=== PATIENT | male | born 1970 | race Caucasian/White ===

== ENCOUNTER 2017-09-27 13:51 | Emergency (ER) | payer OTHER, SELFPAY ==
--- NOTE | 2017-09-27 13:52 | ED.CHESTPAIN ---
HPI - Chest Pain <DIANA Ward - Last Filed: 09/27/17 22:42> General Chief Complaint: Chest Pain Stated Complaint: CHEST PAIN Time Seen by Provider: 09/27/17 13:52 History of Present Illness HPI narrative: 47-year-old male here for complaint of having a muscle spasm and some discomfort to his left lateral chest wall sub axillary area started earlier today. He denies any trauma to the area. He reports that he has had the spasm/discomfort several times the day the lasted approximately 5 sec each and then went away. Pain is reproducible with palpation to the area and movement of the left arm. He states that [place] out [place] the [place] the last [place] days and has been pretty physical over this week. He denies any shortness of breath. No chest pain at this time. No nausea vomiting no diaphoresis. Review of Systems <DIANA Ward - Last Filed: 09/27/17 22:42> Constitutional Denies chills, Denies fever(s), Denies lethargy and Denies weakness Eyes Denies change in vision, Denies eye discharge, Denies irritation and Denies loss of vision ENT Ears, Nose, Mouth, and Throat: Denies change in voice, Denies neck pain and Denies sore throat Cardiovascular Denies chest pain, Denies irregular heart rhythm, Denies lightheadedness, Denies palpitations, Denies dyspnea, Denies dyspnea on exertion and Denies orthopnea Respiratory Denies cough, Denies dyspnea, Denies dyspnea on exertion and Denies wheezing Genitourinary Denies hematuria, Denies flank pain, Denies urinary incontinence and Denies urinary urgency Musculoskeletal Denies neck pain Comments: Left ribcage discomfort/muscle spasm Integumentary/Breasts Denies pruritus, Denies erythema, Denies rash and Denies wounds Neurologic Denies loss of vision and Denies weakness Endocrine Denies palpitations Hematologic/Lymphatic Denies easy bruising Allergic/Immunologic Denies wheezing Exam <DIANA Ward - Last Filed: 09/27/17 22:42> Initial Vital Signs Initial Vital Signs: Vital Signs Temperature 98.3 F 09/27/17 14:01 Pulse Rate 65 09/27/17 14:01 Respiratory Rate 16 09/27/17 14:01 Blood Pressure 148/92 H 09/27/17 14:01 Pulse Oximetry 100 09/27/17 14:01 Const General: cooperative and well developed Nutritional Appearance: well nourished Orientation: alert, awake, oriented x3 and not confused [facility] Mouth: oral mucosae normal and moist mucous membranes Eyes Conjunctivae: conjunctivae normal Sclera: sclerae normal Pupils: PERRL EOM: EOM intact bilaterally Chest Other: Tenderness on palpation to the left lateral ribcage just below the axillary area. No deformities. Resp Effort & Inspection: normal respiratory effort, able to speak in complete sentences, no respiratory distress and no use of accessory muscles Auscultation: clear to auscultation bilaterally, no rales, no rhonchi and no wheezes Cardio Rate: regular rate Rhythm: regular rhythm Heart Sounds: no click, no gallops, no murmurs and no rubs Pulses: normal peripheral pulses Skin General: no rashes or lesions noted, No jaundice and No petechiae Neuro General: alert, oriented x3, gait normal and no focal motor deficits Speech: speech normal <Colleen Iraheta DO - Last Filed: 10/01/17 06:30> Initial Vital Signs Initial Vital Signs: Vital Signs Temperature 98.3 F 09/27/17 14:01 Pulse Rate 65 09/27/17 14:01 Respiratory Rate 16 09/27/17 14:01 Blood Pressure 148/92 H 09/27/17 14:01 Pulse Oximetry 100 09/27/17 14:01 Scores <DIANA Ward - Last Filed: 09/27/17 22:42> HEART Score Heart Score history: Slightly Suspicious Heart Score EKG: Normal Heart Score Age: 45-64 years old Heart Score risk factors: No known risk factors Heart Score troponin: < or = to normal limit Heart Score Total: 1 PERC Score Age greater than or equal to 50 years: No Heart rate greater than or equal to 100 bpm: No Room Air O2 Sat less than 95%: No Unilateral leg swelling: No Recent trauma or surgery: No Hemoptysis: No Prior PE or DVT: No Hormone Use: No Total PERC Score: 0 Course <DIANA Ward Last Filed: 09/27/17 22:42> Orders Ordered: ED Orders 09/27/17 14:12 XR chest 1V Stat Vital Signs - 8 hr 09/27/17 15:34 09/27/17 16:06 Pulse Rate 65 69 Respiratory Rate 16 14 Blood Pressure 118/76 Blood Pressure [Left Arm] 118/76 Pulse Oximetry 98 98 <Colleen Iraheta DO - Last Filed: 10/01/17 06:30> Orders Ordered: ED Orders 09/27/17 14:12 XR chest 1V Stat Vital Signs - 8 hr 09/27/17 15:34 09/27/17 16:06 Pulse Rate 65 69 Respiratory Rate 16 14 Blood Pressure 118/76 Blood Pressure [Left Arm] 118/76 Pulse Oximetry 98 98 MDM - Chest Pain <DIANA Ward - Last Filed: 09/27/17 22:42> Lab Data Result diagrams: 09/27/17 13:40 09/27/17 13:40 Lab Results 09/27/17 09/27/17 Range/Units 13:40 13:40 WBC 11.2 H (4.5-11.0) X10^3/uL RBC 4.59 (4.5-5.9) X10^6/uL Hgb 15.3 (13.5-17.5) g/dL Hct 43.3 (41-53) % MCV 94.3 (80-100) fL MCH 33.3 (26-34) PG MCHC 35.3 (30-36) % RDW 12.8 (11.6-14.8) % Plt Count 231 (150-400) X10^3/uL Neut % (Auto) 72.5 (50-75) % Lymph % (Auto) 18.0 L (25-40) % Dare % (Auto) 7.2 (3-14) % Eos % (Auto) 1.6 L (2-4) % Baso % (Auto) 0.7 (0-2) % Neut # (Auto) 8100 H (1200-1329) /uL Sodium 136 L (137-145) mmol/L Potassium 3.8 (3.4-5.1) mmol/L Chloride 103 (98-107) mmol/L Carbon Dioxide 25 (22-32) mmol/L BUN 15 (9-20) mg/dL Creatinine 0.80 (0.66-1.25) mg/dL Estimated GFR > 60.0 (>60) mL/min BUN/Creatinine Ratio 18.8 (6-22) Glucose 85 (70-100) mg/dL Calcium 8.7 (8.4-10.2) mg/dL Total Bilirubin 0.7 (0.2-1.3) mg/dL AST 48 (17-59) IU/L ALT 43 (21-72) IU/L Alkaline Phosphatase 97 (38-126) U/L Total Creatine Kinase 76 (55-170) U/L Troponin I < 0.012 (0.01-0.034) ng/mL Total Protein 6.4 (6.3-8.2) g/dL Albumin 3.7 (3.5-5.0) g/dL Globulin 2.7 (1.7-4.1) g/dL Albumin/Globulin Ratio 1.4 (1.0-2.8) Imaging Data Chest x-ray: Radiologist's impression: PROCEDURE: XR CHEST 1V INDICATIONS: Left lateral chest/rib pain starting this morning TECHNIQUE: One view of the chest was acquired. [facility]. FINDINGS: Surgical changes and devices: None. Lungs and pleura: No pleural effusions or pneumothorax. Lungs are clear. Mediastinum: Mediastinal contours appear normal. Heart size is normal. Bones and chest wall: No suspicious bony lesions. Overlying soft tissues appear unremarkable. IMPRESSION: No acute cardiopulmonary disease. Dictated by: Ash Andrade M.D. on 09/27/2017 at 14:57 Approved by: Ash Andrade M.D. on 09/27/2017 at 14:57 ECG Data Interpretation: EKG shows normal sinus rhythm with no ST elevation or depression. No ectopy. Ventricular rate is 64. Pr interval of 208. QRS duration of 108. QT of 410 MDM Narrative Medical decision making narrative: CBC and Chem panel were obtained were unremarkable. Chest x-ray was obtained and was negative for any acute findings. EKG shows sinus rhythm with no ST elevation or depression. No ectopy. Cardiac enzymes were obtained and were unremarkable. Perc score of 0. Heart score of 1. Low probability of cardiac involvement. Signs and symptoms presents as a muscle skeletal chest wall discomfort. [id number] Tylenol or Motrin as needed for any discomfort. Follow up with primary care provider in the next few days for re-evaluation. For any worsening symptoms return to the emergency room. <Colleen Esequiel, DO - Last Filed: 10/01/17 06:30> Lab Data Attestation: I reviewed the patient's lab results. Lab Results 09/27/17 09/27/17 Range/Units 13:40 13:40 WBC 11.2 H (4.5-11.0) X10^3/uL RBC 4.59 (4.5-5.9) X10^6/uL Hgb 15.3 (13.5-17.5) g/dL Hct 43.3 (41-53) % MCV 94.3 (80-100) fL MCH 33.3 (26-34) PG MCHC 35.3 (30-36) % RDW 12.8 (11.6-14.8) % Plt Count 231 (150-400) X10^3/uL Neut % (Auto) 72.5 (50-75) % Lymph % (Auto) 18.0 L (25-40) % Dare % (Auto) 7.2 (3-14) % Eos % (Auto) 1.6 L (2-4) % Baso % (Auto) 0.7 (0-2) % Neut # (Auto) 8100 H (8048-7580) /uL Sodium 136 L (137-145) mmol/L Potassium 3.8 (3.4-5.1) mmol/L Chloride 103 (98-107) mmol/L Carbon Dioxide 25 (22-32) mmol/L BUN 15 (9-20) mg/dL Creatinine 0.80 (0.66-1.25) mg/dL Estimated GFR > 60.0 (>60) mL/min BUN/Creatinine Ratio 18.8 (6-22) Glucose 85 (70-100) mg/dL Calcium 8.7 (8.4-10.2) mg/dL Total Bilirubin 0.7 (0.2-1.3) mg/dL AST 48 (17-59) IU/L ALT 43 (21-72) IU/L Alkaline Phosphatase 97 (38-126) U/L Total Creatine Kinase 76 (55-170) U/L Troponin I < 0.012 (0.01-0.034) ng/mL Total Protein 6.4 (6.3-8.2) g/dL Albumin 3.7 (3.5-5.0) g/dL Globulin 2.7 (1.7-4.1) g/dL Albumin/Globulin Ratio 1.4 (1.0-2.8) ECG Data Attestation: I personally reviewed and interpreted this ECG as follows: Prior ECG tracings: not available for review Interpretation: Normal sinus rhythm rate [address] T changes he does have T-wave inversion in lead 3 only no priors Discharge Plan Departure Patient Disposition: Home, Self-Care Clinical Impression: Chest wall discomfort Discharge Date/Time: 09/27/17 16:07 Interventions: ED Discharge Assessment Last Done: 09/27/17 16:06 Instructions: DI for Atypical Chest Pain Activity Restrictions/Additional Instructions: Laboratory results, EKG and chest x-ray were normal today. Signs and symptoms presents as a muscle skeletal pain into the chest wall. Use Tylenol and/or Motrin as needed for any discomfort. Follow up with her primary care provider in the next few days. Return emergency room for any worsening symptoms. Referrals: Misha Rodriguez MD [Primary Care Provider] - <Colleen Iraheta DO - Last Filed: 10/01/17 06:30> Cosign ED Attending Cosignature Attestation: I discussed all findings with the patient [and /spouse mother], Education has been performed regarding treatment plan, diagnosis, warning signs and symptoms and all concerns have been addressed. Verbally agree with and understood all of the above.
[2017-09-27 14:01] VITALS: BP 148/92; PULSE 65; RESP 16; TEMP 36.8; O2SAT 100; BMI 27.0
--- NOTE | 2017-09-27 14:12 | DI.RAD.S_ITS ---
PROCEDURE: XR CHEST 1V INDICATIONS: Left lateral chest/rib pain starting this morning TECHNIQUE: One view of the chest was acquired. [facility], [facility], 10:32. FINDINGS: Surgical changes and devices: None. Lungs and pleura: No pleural effusions or pneumothorax. Lungs are clear. Mediastinum: Mediastinal contours appear normal. Heart size is normal. Bones and chest wall: No suspicious bony lesions. Overlying soft tissues appear unremarkable. IMPRESSION: No acute cardiopulmonary disease. Dictated by: Ash Andrade M.D. on 09/27/2017 at 14:57 Approved by: Ash Andrade M.D. on 09/27/2017 at 14:57
[2017-09-27 14:28] LABS: Add Manual Diff / Slide Review NO; Basophils Percent Auto 0.7 % (0-2); Eosinophils Percent Auto 1.6 % (2-4); Hematocrit 43.3 % (41-53); Hemoglobin 15.3 g/dL (13.5-17.5); Mean Corpuscular HGB Conc 35.3 % (30-36); Mean Corpuscular Hemoglobin 33.3 PG (26-34); Mean Corpuscular Volume 94.3 fL (80-100); Monocytes Percent Auto 7.2 % (3-14); Neutrophils Absolute Auto 8100 /uL (3000-5900); Neutrophils Percent Auto 72.5 % (50-75); Platelet Count 231 X10^3/uL (150-400); Red Blood Cell Count 4.59 X10^6/uL (4.5-5.9); Red Cell Distribution Width 12.8 % (11.6-14.8); White Blood Cell Count 11.2 X10^3/uL (4.5-11.0)
[2017-09-27 14:38] LABS: Alanine Aminotransferase 43 IU/L (21-72); Albumin 3.7 g/dL (3.5-5.0); Albumin Globulin Ratio 1.4 (1.0-2.8); Alkaline Phosphatase 97 U/L (38-126); Aspartate Aminotransferase 48 IU/L (17-59); BUN Creatinine Ratio 18.8 (6-22); Bilirubin Total 0.7 mg/dL (0.2-1.3); Blood Urea Nitrogen 15 mg/dL (9-20); Calcium 8.7 mg/dL (8.4-10.2); Carbon Dioxide 25 mmol/L (22-32); Chloride 103 mmol/L (98-107); Creatine Kinase 76 U/L (55-170); Estimated Glomerular Filt Rate > 60.0 mL/min (>60); Globulin 2.7 g/dL (1.7-4.1); Glucose 85 mg/dL (70-100); HEMOLYSIS 50 (0-50); Potassium 3.8 mmol/L (3.4-5.1); Sodium 136 mmol/L (137-145); Total Protein 6.4 g/dL (6.3-8.2)
[2017-09-27 14:40] VITALS: BP 143/81; PULSE 59; RESP 15; O2SAT 98
[2017-09-27 14:50] LABS: Troponin I < 0.012 ng/mL (0.01-0.034)
[2017-09-27 15:34] VITALS: BP 118/76; PULSE 65; RESP 16; O2SAT 98
[2017-09-27 16:06] VITALS: BP 118/76; PULSE 69; RESP 14; O2SAT 98
== END 2017-09-27 16:07 | disposition home or self-care (01) ==
PROVIDERS: Emergency Provider Nurse Practitioner Family; PCP Family Medicine
DX: R07.89 Other chest pain (principal)
CPT/HCPCS: 36591; 71045; 80053; 82550; 82553; 84484; 85025; 93005; 99282; 99285

== ENCOUNTER → 2017-12-15 10:39 | Outpatient (CLI) | payer OTHER, SELFPAY ==
--- NOTE | 2017-12-15 10:48 | DI.RAD.S_ITS ---
PROCEDURE: XR CERVICAL SPINE 4V OR 5V INDICATIONS: left arm discomfort TECHNIQUE: 5 views of the cervical spine acquired. COMPARISON: None. FINDINGS: Bones: No fractures or dislocations to the C6-C7 level. There is straightening of the cervical lordosis as well as minimal anterolisthesis at C4-C5. There is mild multilevel disc space narrowing in the mid and lower cervical spine. There is mild uncovertebral joint arthropathy in the mid and lower cervical spine. Oblique images demonstrate [id number] bony neuroforaminal narrowing on the right at C6-C7 and minimal narrowing on the right at C5-C6. On the left, there is minimal bony neuroforaminal narrowing at C5-C6. Soft tissues: No prevertebral soft tissue swelling. IMPRESSION: 1. Mild degenerative changes in the mid and lower cervical spine with mild to moderate bony neuroforaminal narrowing on the right at C6-C7. 2. Straightening of the cervical lordosis with minimal anterolisthesis at C4-C5. Dictated by: John Burnham M.D. on 12/15/2017 at 11:15 Approved by: John Burnham M.D. on 12/15/2017 at 11:17
== END ==
PROVIDERS: PCP Family Medicine; Visit Provider Nurse Practitioner Family
DX: M79.602 Pain in left arm (principal); M48.02 Spinal stenosis, cervical region; M47.812 Spondylosis without myelopathy or radiculopathy, cervical region
CPT/HCPCS: 72050